=== PATIENT | female | born 1940 | race Caucasian/White ===

== ENCOUNTER → 2017-06-03 | Outpatient (CLI) | payer OTHER ==
[~2017-06-03] MED LIST: LEVO88TA PO; MILK1CAP; MULTTAB58 PO; NXM/40 PO; TAMO20TA47 PO; TRAM-453 PO; garlic; tumeric
--- NOTE | 2017-06-03 16:39 | DIAGNOSTIC IMAGING REPORT ---
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 No acute infiltrate. Mid and upper lungs are clear. Diaphragms smooth. IMPRESSION: Chronic basilar change. No acute process. The above report was generated using voice recognition software. It may contain grammatical, syntax or spelling errors. Electronically signed by: Marino Foley M.D. 06/03/2017 4:37 PM Dictated Date/Time: 06/03/2017 4:36 PM
== END | disposition home or self-care (01) ==
LOC: C.RAD1850 16:27
PROVIDERS: ATTEND Internal Medicine Pulmonary Disease
DX: J45.991 Cough variant asthma (principal)

== ENCOUNTER 2023-03-20 18:15 | Observation (INO) ==
[2023-03-20] MEDS ORDERED: SODIUM CHLORIDE 0.9% 1000ML 1,000 ML IV STA (18:22)
--- NOTE | 2023-03-20 18:22 | ED Triage Note ---
Date of Service March 20, 2023 History of Present Illness This patient was briefly evaluated while in triage. An abbreviated physical exam was performed. This patient is a 82-year-old Female who presents to the ED for evaluation of a fever. Patient reports having a complicated ERCP yesterday by [facility] (Dr. Bernardo Gruber), and has not felt well since. The patient did check her temperature, and noticed that her postoperative discharge instructions recommended follow-up with any concerning symptoms. Patient does report upper abdominal pain, denying any chest pain or shortness of breath. The patient rates her discomfort a 10 out of 10 at its worst. The patient reports a prior history of multiple surgeries on her pancreas. 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 Physical Exam CONSTITUTIONAL: Healthy and well nourished. Patient does not appear toxic or in significant distress. HEENT: No scleral icterus or conjunctival injection. RESPIRATORY: Clear to auscultation bilaterally with no wheezing, crackles, rhonchi or stridor. CARDIOVASCULAR: Regular rate and rhythm with no murmurs, rubs or gallops. GASTROINTESTINAL: Bowel sounds present in all quadrants. Patient has mild epigastric and right upper quadrant tenderness to palpation. No rigidity, guarding or rebound. MUSCULOSKELETAL: Full range of motion of all joints without discomfort. INTEGUMENTARY: No rash or other significant dermatologic conditions noted. HEMATOLOGIC: No ecchymosis or petechiae. PSYCHIATRIC: Positive affect. NEUROLOGIC: No focal neurologic deficits noted. Initial orders for labs and / or imaging were placed and patient was placed in the waiting area until a bed is available. Please see further documentation for the full ED course.
[2023-03-20 19:15] LABS: Basophils # (auto) 0.02 K/uL (0-0.2); Basophils % (auto) 0.3 %; Eosinophils # (auto) 0.08 K/uL (0-0.50); Eosinophils % (auto) 1.1 %; Hematocrit (blood only) 32.7 % (37.0-47.0); Hemoglobin 10.4 g/dl (12.0-16.0); Immature Granulocytes # (auto) 0.02 K/uL (0.01-0.20); Immature Granulocytes % (auto) 0.3 %; Lymphocytes # (auto) 1.32 K/uL (1.2-3.4); Lymphocytes % (auto) 17.7 %; Mean Corpuscular Hemoglobin 28.9 pg (25.0-34.0); Mean Corpuscular Hgb Conc 31.8 g/dL (32.0-36.0); Mean Corpuscular Volume 90.8 fL (80.0-100.0); Mean Platelet Volume 9.5 fL (9.4-12.4); Monocytes # (auto) 0.51 K/uL (0.11-0.59); Monocytes % (auto) 6.8 %; Neutrophils # (auto) 5.51 K/uL (1.40-6.50); Neutrophils % (auto) 73.8 %; Platelet Count 212 K/uL (130-400); RDW Coefficient of Variation 13.2 % (11.5-14.5); RDW Standard Deviation 43.6 fL (36.4-46.3); White Blood Count 7.46 K/ul (4.8-10.8)
[2023-03-20 19:24] LABS: Albumin Globulin Ratio 1.5 (0.9-2); Albumin Level 3.9 gm/dl (3.4-5.0); BUN Creatinine Ratio 16.8 (10-20); Bilirubin,Total 0.6 mg/dl (0.2-1.0); Calcium 8.5 mg/dl (8.6-10.3); Creatinine Clr Calc Pharmacy 35.6 ml/min; Est GFR (African American) 55.6 ml/min; Globulin 2.6 gm/dl (2.5-4.0); Potassium 4.4 mmol/L (3.5-5.1); Total Protein 6.5 gm/dl (6.0-8.3)
[2023-03-20 19:30] LABS: Troponin I High Sensitivity 4.4 pg/ml (0-14)
[2023-03-20 19:46] LABS: Appearance Urine Clear (Clear); Bacteria Urine Automated Negative (Negative); Bilirubin Urine Negative (Negative); Blood Urine Trace (Negative); Cast Urine Automated 0 /lpf (0-5); Color Urine Yellow; Epithelial Cell Urine Auto 0-5 /lpf (0-5); Glucose Urine UA Negative (Negative); Ketones Urine Negative (Negative); Leukocyte Esterase Urine Negative (Negative); Nitrite Urine Negative (Negative); Protein Urine Negative (Negative); RBC Urine Automated 0-4 /hpf (0-4); Urobilinogen Urine Negative (Negative); pH Urine 6.5 (4.5-7.5)
--- NOTE | 2023-03-20 19:51 | Emergency Department Note ---
Impression & Plan Acute upper abdominal pain, Acute pancreatitis, S/P ERCP, Anemia ED Provider Note NAME: LESTER CHOUDHARY AGE: 82 SEX: F : 1940 ARRIVES VIA: Walk-In INFORMANT: [Patient] ED PROVIDER(S): [Jose Molina MD] CHIEF COMPLAINT: Fever, abdominal pain HISTORY OF PRESENT ILLNESS: The patient is an 82-year-old female who had an ERCP done yesterday by Dr. Vela. She did have a stent placed to help drain the pancreas. She has a history of pancreatitis. The patient states that she feels worse since the ERCP. She has had increasing colicky pain in the right upper quadrant and ep igastrium. She has had no appetite and some nausea. Today, her temperature was 100.3. She presents for evaluation. There has been no cough or congestion or shortness of breath. No urinary complaints, no diarrhea. PMHx/PSHx: See Below SOCIAL HISTORY: See Below. PHYSICAL EXAM: GENERAL: Patient is in no acute distress. HEENT: No acute trauma, normocephalic atraumatic, mucous membranes moist, no nasal congestion. NECK: No stridor, no adenopathy, no meningismus, trachea is midline. LUNGS: Clear to auscultation bilaterally, no wheeze, no rhonchi, breath sounds equal. HEART: Without murmurs gallops or rubs, regular rate and rhythm. ABDOMEN: Diffuse abdominal tenderness but primarily tender in the right upper quadrant and epigastrium, no peritonitis. EXTREMITIES: No cyanosis or edema, full range of motion of all the joints without pain or difficulty, no signs for acute trauma. NEUROLOGIC: Oriented x 3, no acute motor or sensory deficits, no focal weakness. SKIN: No rash, no jaundice, no diaphoresis. DIFFERENTIAL DIAGNOSIS: Pancreatitis, stent obstruction, biliary colic, bowel rupture, bile leak, hemorrhage, among others. EMERGENCY DEPARTMENT COURSE/PROCEDURES: Prior/Outside records reviewed: None. ECG per my interpretation: Indication was abdominal pain. The ECG shows a normal sinus rhythm with a rate of 87. There is an old septal infarct. There is no ST elevation, no PVCs. The QTc is 382. Continuous Cardiac Monitoring per my interpretation: An order was placed for continuous cardiac monitoring. The monitor shows a rate of 90 with normal sinus rhythm. MEDICAL DECISION MAKING: There is no leukocytosis. A mild anemia was seen. There was a normal platelet count. No renal failure or significant electrolyte abnormality. Lactic acid level was not elevated making severe sepsis less likely. No concerning liver enzyme elevation. Lipase was slightly elevated consistent with early pancreatitis. Urinalysis did not show findings of infection. COVID test returned negative. Abdominal and pelvis CT showed a small wire within the small bowel, no bowel perforation or bowel obstruction. No intra-abdominal hemorrhage appreciated. Patient did have a stone in her common bile duct. A pancreatic duct stent was in place. Patient was tender in the upper abdomen. She had just underwent ERCP. Patient was given IV saline, 1 L. She did not want anything for pain. I spoke with GI, Dr. Selby. We discussed the case. Admission/observation was recommended given the recent procedure and the findings on CT imaging coupled with her laboratory testing. I spoke with the patient and case management, the on-call hospitalist was consulted. Early pancreatitis is possible, biliary/pancreatic duct obstruction is possible, foreign body is possible. DISPOSITION: Patient's presentation and findings warrant a hospital stay. Past Med/Surg History Medical History Pancreatitis Social History Smoking Status: Former smoker Feels Safe at Home: Yes Allergies Allergies Allergy/AdvReac Type Severity Reaction Status Date / Time nitrofurantoin Allergy Severe Anaphylaxis Verified 03/20/23 22:51 [From Macrobid] Home Meds Home Medications Medication Instructions Recorded Confirmed B-complex with vitamin C 1 tab PO DAILY 03/20/23 03/20/23 Lactobacillus acidophilus 1.5 mg 0 mmu cells PO DAILY 03/20/23 03/20/23 (250 million cell) capsule (Probiotic Acidophilus) Vitamin D2 Tab 2,000 unit PO DAILY 03/20/23 03/20/23 cetirizine 10 mg tablet 10 mg PO DAILY 03/20/23 03/20/23 ciprofloxacin HCl 500 mg tablet 500 mg PO BID 03/20/23 03/20/23 (Cipro) garlic 1,000 mg capsule 1,000 mg PO DAILY 03/20/23 03/20/23 ipratropium bromide 42 mcg (0.06 1 spray intranasal BID 03/20/23 03/20/23 %) nasal spray levalbuterol tartrate 45 2 puff inhalation Q6 PRN Shortness 03/20/23 03/20/23 mcg/actuation aerosol inhaler Of Breath Or Wheezing (Xopenex HFA) levothyroxine 88 mcg tablet 88 mcg PO DAILY 03/20/23 03/20/23 milk thistle 200 mg capsule 200 mg PO DAILY PRN .. 03/20/23 03/20/23 omeprazole 20 mg capsule,delayed 20 mg PO QAM 03/20/23 03/20/23 release turmeric root extract 500 mg tablet 500 mg PO QAM 03/20/23 03/20/23 Results & Data (ED) Vital Signs Vital Signs - 24 hr 03/20/23 18:17 03/20/23 19:24 03/20/23 19:39 Temperature 37.3 C Temperature Source Oral Pulse Rate 105 H 88 Pulse Rate [Apical] 90 Pulse Rate from SpO2 Sensor Pulse Rhythm [Apical] Regular Pulse Strength [Apical] Normal Respiratory Rate 18 19 Respiratory Effort / Characteristics Non-Labored Spontaneous Respiratory Depth Normal Respiratory Pattern Regular Blood Pressure 191/97 H Blood Pressure [Left Arm] 125/100 Blood Pressure Mean 128 Blood Pressure Mean [Left Arm] 108 Blood Pressure Position [Left Arm] Lying Pulse Oximetry 90 94 Oxygen Delivery Method Room Air Room Air Oxygen Flow Rate Sepsis Recent Fever Within 48 Hours Yes Sepsis New/Unexplained Change in Mental Status N/A Sepsis Action Taken by Nursing No Action Required 03/20/23 19:39 03/20/23 21:00 03/20/23 21:06 Temperature Temperature Source Pulse Rate 90 Pulse Rate [Apical] 80 Pulse Rate from SpO2 Sensor Pulse Rhythm [Apical] Regular Pulse Strength [Apical] Normal Respiratory Rate 19 17 Respiratory Effort / Characteristics Non-Labored Spontaneous Respiratory Depth Normal Respiratory Pattern Regular Blood Pressure Blood Pressure [Left Arm] 138/76 Blood Pressure Mean Blood Pressure Mean [Left Arm] 96 Blood Pressure Position [Left Arm] Lying Pulse Oximetry 94 88 L 98 Oxygen Delivery Method Room Air Room Air Nasal Cannula Oxygen Flow Rate 2 Sepsis Recent Fever Within 48 Hours Sepsis New/Unexplained Change in Mental Status Sepsis Action Taken by Nursing 03/20/23 22:00 03/20/23 23:00 Temperature Temperature Source Pulse Rate 87 Pulse Rate [Apical] 78 Pulse Rate from SpO2 Sensor 88 Pulse Rhythm [Apical] Pulse Strength [Apical] Respiratory Rate 27 H 17 Respiratory Effort / Characteristics Non-Labored Spontaneous Respiratory Depth Normal Respiratory Pattern Blood Pressure 147/93 H Blood Pressure [Left Arm] 122/65 Blood Pressure Mean 111 Blood Pressure Mean [Left Arm] 84 Blood Pressure Position [Left Arm] Lying Pulse Oximetry 99 99 Oxygen Delivery Method Nasal Cannula Room Air Oxygen Flow Rate 2 Sepsis Recent Fever Within 48 Hours Sepsis New/Unexplained Change in Mental Status Sepsis Action Taken by Residential Medications Current Medication List: was personally reviewed by me Laboratory Data Attestation: I reviewed the patient's lab results. 03/20/23 18:50 03/20/23 18:50 Lab Results 03/20/23 03/20/23 03/20/23 Range/Units 18:50 18:50 18:50 WBC 7.46 (4.8-10.8) K/ul RBC 3.60 L (4.20-5.40) M/uL Hgb 10.4 L (12.0-16.0) g/dl Hct 32.7 L (37.0-47.0) % MCV 90.8 (80.0-100.0) fL MCH 28.9 (25.0-34.0) pg MCHC 31.8 L (32.0-36.0) g/dL RDW Std Deviation 43.6 (36.4-46.3) fL RDW Coeff of [place] 13.2 (11.5-14.5) % Plt Count 212 (130-400) K/uL MPV 9.5 (9.4-12.4) fL Immature Gran % (Auto) 0.3 % Neut % (Auto) 73.8 % Lymph % (Auto) 17.7 % [place] % (Auto) 6.8 % Eos % (Auto) 1.1 % Baso % (Auto) 0.3 % Neut # (Auto) 5.51 (1.40-6.50) K/uL Lymph # (Auto) 1.32 (1.2-3.4) K/uL [place] # (Auto) 0.51 (0.11-0.59) K/uL Eos # (Auto) 0.08 (0-0.50) K/uL Baso # (Auto) 0.02 (0-0.2) K/uL Immature Gran # (Auto) 0.02 (0.01-0.20) K/uL Sodium 138 (136-145) mmol/L Potassium 4.4 (3.5-5.1) mmol/L Chloride 104 (98-107) mmol/L Carbon Dioxide 29 (21-32) mmol/L Anion Gap 5 (3-11) BUN 18 (6-23) mg/dl Creatinine 1.07 (0.6-1.2) mg/dl Est Cr Clr Drug Dosing 35.6 ml/min Est GFR ( Amer) 55.6 ml/min Est GFR (Non-Af Amer) 48.0 ml/min BUN/Creatinine Ratio 16.8 (10-20) Glucose 100 H (70-99(Fasting)) mg/dl Lactate 0.7 (0.4-2.0) mmol/L Calcium 8.5 L (8.6-10.3) mg/dl Magnesium 1.9 (1.7-2.4) mg/dl Total Bilirubin 0.6 (0.2-1.0) mg/dl AST 18 (13-39) U/L ALT 18 (7-52) U/L Alkaline Phosphatase 70 (34-104) U/L Troponin I High Sens 4.4 (0-14) pg/ml Total Protein 6.5 (6.0-8.3) gm/dl Albumin 3.9 (3.4-5.0) gm/dl Globulin 2.6 (2.5-4.0) gm/dl Albumin/Globulin Ratio 1.5 (0.9-2) Lipase 96 H (11-82) U/L Procalcitonin (0-0.5) ng/ml Urine Color Urine Appearance (Clear) Urine pH (4.5-7.5) Ur Specific [place] (1.000-1.030) Urine Protein (Negative) Urine Glucose (UA) (Negative) Urine Ketones (Negative) Urine Blood (Negative) Urine Nitrite (Negative) Urine Bilirubin (Negative) Urine Urobilinogen (Negative) Ur Leukocyte Esterase (Negative) Urine WBC (Auto) (0-5) /hpf Urine RBC (Auto) (0-4) /hpf U Hyaline Cast (Auto) (0-5) /lpf U Epithel Cells (Auto) (0-5) /lpf Urine Bacteria (Auto) (Negative) SARS-CoV-2, RNA, NAAT (NEGATIVE) 03/20/23 03/20/23 03/20/23 Range/Units 18:50 18:55 19:23 WBC (4.8-10.8) K/ul RBC (4.20-5.40) M/uL Hgb (12.0-16.0) g/dl Hct (37.0-47.0) % MCV (80.0-100.0) fL MCH (25.0-34.0) pg MCHC (32.0-36.0) g/dL RDW Std Deviation (36.4-46.3) fL RDW Coeff of [place] (11.5-14.5) % Plt Count (130-400) K/uL MPV (9.4-12.4) fL Immature Gran % (Auto) % Neut % (Auto) % Lymph % (Auto) % [place] % (Auto) % Eos % (Auto) % Baso % (Auto) % Neut # (Auto) (1.40-6.50) K/uL Lymph # (Auto) (1.2-3.4) K/uL [place] # (Auto) (0.11-0.59) K/uL Eos # (Auto) (0-0.50) K/uL Baso # (Auto) (0-0.2) K/uL Immature Gran # (Auto) (0.01-0.20) K/uL Sodium (136-145) mmol/L Potassium (3.5-5.1) mmol/L Chloride (98-107) mmol/L Carbon Dioxide (21-32) mmol/L Anion Gap (3-11) BUN (6-23) mg/dl Creatinine (0.6-1.2) mg/dl Est Cr Clr Drug Dosing ml/min Est GFR ( Amer) ml/min Est GFR (Non-Af Amer) ml/min BUN/Creatinine Ratio (10-20) Glucose (70-99(Fasting)) mg/dl Lactate (0.4-2.0) mmol/L Calcium (8.6-10.3) mg/dl Magnesium (1.7-2.4) mg/dl Total Bilirubin (0.2-1.0) mg/dl AST (13-39) U/L ALT (7-52) U/L Alkaline Phosphatase (34-104) U/L Troponin I High Sens (0-14) pg/ml Total Protein (6.0-8.3) gm/dl Albumin (3.4-5.0) gm/dl Globulin (2.5-4.0) gm/dl Albumin/Globulin Ratio (0.9-2) Lipase (11-82) U/L Procalcitonin 0.11 (0-0.5) ng/ml Urine Color Yellow Urine Appearance Clear (Clear) Urine pH 6.5 (4.5-7.5) Ur Specific [place] 1.010 (1.000-1.030) Urine Protein Negative (Negative) Urine Glucose (UA) Negative (Negative) Urine Ketones Negative (Negative) Urine Blood Trace H (Negative) Urine Nitrite Negative (Negative) Urine Bilirubin Negative (Negative) Urine Urobilinogen Negative (Negative) Ur Leukocyte Esterase Negative (Negative) Urine WBC (Auto) 1-5 (0-5) /hpf Urine RBC (Auto) 0-4 (0-4) /hpf U Hyaline Cast (Auto) 0 (0-5) /lpf U Epithel Cells (Auto) 0-5 (0-5) /lpf Urine Bacteria (Auto) Negative (Negative) SARS-CoV-2, RNA, NAAT NEGATIVE (NEGATIVE) Administered Medications Lactated Ringer's (Lr) 1,000 mls @ 100 mls/hr IV .Q10H ONE Stop: 03/21/23 08:37 Last Admin: 03/20/23 23:36 Dose: 100 mls/hr Documented By: CAW Discontinued Medications Sodium Chloride (Nss 1000ml) 1,000 mls @ 999 mls/hr IV .Q1H1M STA Stop: 03/20/23 19:22 Last Infusion: 03/20/23 20:52 Dose: 0 mls/hr Documented By: Admin: 03/20/23 19:30 Dose: 999 mls/hr Documented By: ALBERTO Ioversol (Optiray 320 100ml) 96 ml IV ONCE ONE Stop: 03/20/23 20:35 Last Admin: 03/20/23 20:34 Dose: 96 ml Documented By: JAEL Imaging Data Radiologist's Impression: Abdomen/Pelvis CT 03/20/23 18:22 Exam(s): CT ABDOMEN + PELVIS With Contrast IV Amt: 96 ml optiray 320 EXAM: CT Abdomen and Pelvis With Intravenous Contrast CLINICAL HISTORY: Reason for exam: Upper abd pain s/p ERCP. TECHNIQUE: Axial computed tomography images of the abdomen and pelvis with intravenous contrast. CTDI is 11.04 mGy and DLP is 524.16 mGy-cm. Automated exposure control was utilized for the study. A dose lowering technique was utilized adhering to the principles of ALARA. CONTRAST: Patient received 96 ml optiray 320 of IV contrast COMPARISON: No relevant prior studies available. FINDINGS: Lung bases: Unremarkable. No mass. No consolidation. ABDOMEN: Liver: Unremarkable. No mass. Gallbladder and bile ducts: Dilated common bile duct, which contains a gallstone measuring 6 mm. Cholecystectomy. Pneumobilia. Pancreas: Main pancreatic duct stent. Spleen: Unremarkable. No splenomegaly. Adrenals: Unremarkable. No mass. Kidneys and ureters: Unremarkable. No hydronephrosis or delayed nephrogram. Stomach and bowel: Metallic wire in the small bowel measuring approximately 7.3 cm. No obstruction. No mucosal thickening. PELVIS: Appendix: No findings to suggest acute appendicitis. Bladder: Unremarkable. No mass. Reproductive: Unremarkable as visualized. ABDOMEN and PELVIS: Intraperitoneal space: Unremarkable. No free air. No significant fluid collection. Bones/joints: Degenerative changes of the spine. No acute fracture. No dislocation. Soft tissues: Unremarkable. Vasculature: Atherosclerotic changes of the aorta. No abdominal aortic aneurysm. Lymph nodes: Unremarkable. No enlarged lymph nodes. IMPRESSION: 1. Main pancreatic duct stent. 2. Metallic wire in the small bowel measuring approximately 7.3 cm. Note, this has a similar appearance as the pancreatic duct stent, but a shorter. 3. Dilated common bile duct, which contains a gallstone measuring 6 mm. Cholecystectomy. Pneumobilia. Electronically signed by: Clayton Leigh MD 03/20/23 21:07 PM Discharge Plan Visit Data Chief Complaint: Fever Stated Complaint: ABDOMINAL PAIN,FEVER ED Provider: Jose Molina Discharge Problem: Acute upper abdominal pain, Acute pancreatitis, S/P ERCP, Anemia Patient Disposition: Admitted As Inpatient Condition: Good Forms Stand Alone Forms: [facility] [place] [employer] Prescriptions Prescriptions: No Action cetirizine 10 mg Tablet 10 mg PO DAILY milk thistle 200 mg Capsule 200 mg PO DAILY PRN (Reason: ..) Rx Instructions: give with meal/snack ciprofloxacin HCl [Cipro] 500 mg Tablet 500 mg PO BID Rx Instructions: ordered 03/20/23 garlic 1,000 mg Capsule 1,000 mg PO DAILY levothyroxine 88 mcg tablet 88 mcg PO DAILY omeprazole 20 mg capsule,delayed release(DR/EC) 20 mg PO QAM ipratropium bromide 42 mcg (0.06 %) [place],Non-Aerosol 1 spray INTRANASAL BID Rx Instructions: administer into each nostril B-complex with vitamin C [Super B Complex + C] Tablet 1 tab PO DAILY Probiotic Acidophilus 1.5 mg (250 million cell) Capsule 0 mmu cells PO DAILY turmeric root extract 500 mg Tablet 500 mg PO QAM Vitamin D2 Tab 2,000 unit PO DAILY levalbuterol tartrate [Xopenex HFA] 45 mcg/actuation HFA aerosol inhaler 2 puff INHALATION Q6 PRN (Reason: Shortness Of Breath Or Wheezing) Referrals Referrals: Amanda Curry MD [Primary Care Provider] -
[2023-03-20] MEDS ORDERED: OPTIRAY 320 100ml IV ONE (20:34)
--- NOTE | 2023-03-20 21:08 | CT Scan Report ---
Exam(s): CT ABDOMEN + PELVIS With Contrast IV Amt: 96 ml optiray 320 EXAM: CT Abdomen and Pelvis With Intravenous Contrast CLINICAL HISTORY: Reason for exam: Upper abd pain s/p ERCP. TECHNIQUE: Axial computed tomography images of the abdomen and pelvis with intravenous contrast. CTDI is 11.04 mGy and DLP is 524.16 mGy-cm. Automated exposure control was utilized for the study. A dose lowering technique was utilized adhering to the principles of ALARA. CONTRAST: Patient received 96 ml optiray 320 of IV contrast COMPARISON: No relevant prior studies available. FINDINGS: Lung bases: Unremarkable. No mass. No consolidation. ABDOMEN: Liver: Unremarkable. No mass. Gallbladder and bile ducts: Dilated common bile duct, which contains a gallstone measuring 6 mm. Cholecystectomy. Pneumobilia. Pancreas: Main pancreatic duct stent. Spleen: Unremarkable. No splenomegaly. Adrenals: Unremarkable. No mass. Kidneys and ureters: Unremarkable. No hydronephrosis or delayed nephrogram. Stomach and bowel: Metallic wire in the small bowel measuring approximately 7.3 cm. No obstruction. No mucosal thickening. PELVIS: Appendix: No findings to suggest acute appendicitis. Bladder: Unremarkable. No mass. Reproductive: Unremarkable as visualized. ABDOMEN and PELVIS: Intraperitoneal space: Unremarkable. No free air. No significant fluid collection. Bones/joints: Degenerative changes of the spine. No acute fracture. No dislocation. Soft tissues: Unremarkable. Vasculature: Atherosclerotic changes of the aorta. No abdominal aortic aneurysm. Lymph nodes: Unremarkable. No enlarged lymph nodes. IMPRESSION: 1. Main pancreatic duct stent. 2. Metallic wire in the small bowel measuring approximately 7.3 cm. Note, this has a similar appearance as the pancreatic duct stent, but a shorter. 3. Dilated common bile duct, which contains a gallstone measuring 6 mm. Cholecystectomy. Pneumobilia. Electronically signed by: Clayton Leigh MD 03/20/23 21:07 PM
[2023-03-20] MEDS ORDERED: LACTATED RINGER'S 1,000 ML IV ONE (22:38)
--- NOTE | 2023-03-20 23:30 | History & Physical Report ---
Date of Service March 20, 2023 Assessment & Plan (1) Abdominal pain: Plan: Possible post ERCP pancreatitis hx chronic pancreatitis/history choledochal cyst status post surgery Patient nontoxic. Transient hypoxemia noted at the ER Possibly from COPD. patient denies unusual SOB Right breast cancer status post surgery/radiation/tamoxifen Rx, currently in remission hypothyroidism, euthyroid as of recent outpatient TSH Acute on chronic anemia, Hemoglobin lower than baseline, patient denies overt GI bleed mood disorder, at baseline past tobacco abuse OBS GMF Bowel rest IVF GI consult Re: Post ERCP abdominal pain Supplemental O2 anemia work-up, patient hesitant to receive transfusion if recommended DVT prophylaxis. SCDs Re: Recent ERCP Recommended Lovenox 30 mg subcutaneous daily if no contraindication to anticoagulation pending GI evaluation Full code Text document was generated using [employer] voice recognition software. It may contain grammatical or spelling errors. Kindly contact undersigned for clarification of any documentation item in question. History of Present Illness Chief Complaint: Abdominal pain Primary Care Provider: Amanda Curry MD History obtained from patient and records. Medical history significant for chronic pancreatitis/history choledochal cyst st atus post surgery, COPD, right breast cancer status post surgery/radiation/tamoxifen Rx, hypothyroidism, chronic anemia (baseline hemoglobin 11), mood disorder, past tobacco abuse. Patient underwent outpatient ERCP at [facility] 2 days ago for CBD stone and for therapy of chronic pancreatitis. INR prophylaxis. Durotomy performed with confirmation of pancreas divisum. Choledocholithiasis found with complete removal via biliary sphincterotomy and balloon extraction with subsequent CBD stent placement. Ciprofloxacin course prescribed for 3 days. Abdominal x-ray recommended after 3 weeks to assure spontaneous migration of stents as per endoscopy report. Worsening epigastric pain at home following procedure as per patient. Fever 103 with some nausea. Patient denies chest pain, unusual SOB. Patient denies black/bloody stools. Patient compliant with ciprofloxacin Rx. Patient consulted ER for worsening symptoms. Medical History as above Surgical History : Vaginal sling repair, rectal prolapse repair, right breast lumpectomy, common bile duct removal for choledochal cyst, radical hysterectomy, appendectomy, cataract surgery, cholecystectomy Family History : Lymphoma, heart disease Personal/Social history : Past tobacco abuse, occasional EtOH intake, retired businesswoman Allergies Allergy/AdvReac Type Severity Reaction Status Date / Time nitrofurantoin Allergy Severe Anaphylaxis Verified 03/20/23 22:51 [From Macrobid] Home Medications Medication Instructions Recorded Confirmed Type B-complex with vitamin C 1 tab PO DAILY 03/20/23 03/20/23 History Lactobacillus acidophilus 1.5 mg 0 mmu cells PO DAILY 03/20/23 03/20/23 History (250 million cell) capsule (Probiotic Acidophilus) Vitamin D2 Tab 2,000 unit PO DAILY 03/20/23 03/20/23 History cetirizine 10 mg tablet 10 mg PO DAILY 03/20/23 03/20/23 History ciprofloxacin HCl 500 mg tablet 500 mg PO BID 03/20/23 03/20/23 History (Cipro) garlic 1,000 mg capsule 1,000 mg PO DAILY 03/20/23 03/20/23 History ipratropium bromide 42 mcg (0.06 1 spray intranasal BID 03/20/23 03/20/23 History %) nasal spray levalbuterol tartrate 45 2 puff inhalation Q6 PRN Shortness 03/20/23 03/20/23 History mcg/actuation aerosol inhaler Of Breath Or Wheezing (Xopenex HFA) levothyroxine 88 mcg tablet 88 mcg PO DAILY 03/20/23 03/20/23 History milk thistle 200 mg capsule 200 mg PO DAILY PRN .. 03/20/23 03/20/23 History omeprazole 20 mg capsule,delayed 20 mg PO QAM 03/20/23 03/20/23 History release turmeric root extract 500 mg tablet 500 mg PO QAM 03/20/23 03/20/23 History Past Med/Surg History Medical History Pancreatitis Social History Smoking Status: Never smoker Second Hand Exposure: No; Do You Dip or Chew Tobacco: No; Tobacco Cessation Education Requested by Patient: No Hx Alcohol Use: No Hx Substance Use: No Preferred Language: Telugu Communication Ability: Effective Airport Representative Required: No Beliefs That Will Affect Care: None Current Living Situation: Alone Feels Safe at Home: Yes Safety Concerns: Feels Safe At This Time Assistive Devices: Glasses and Hearing Aid - Left Review of Systems Review of Systems: As per HPI, all other systems reviewed and negative Physical Exam Physical Exam: GENERAL: Comfortable, slightly hard of hearing, pleasant, no respiratory distress SKIN: Pallor, warm HEENT: Pale palpebral conjunctivae, no ptosis, dry buccal mucosa, nasal cannula in place NECK : Supple, no tenderness CHEST : decreased breath sounds, no tenderness HEART : RRR, no obvious murmurs ABDOMEN: Some distention, epigastric tenderness EXTREMITIES : No LE swelling/tenderness, no other conspicuous deformities noted NEUROLOGIC : Coherent, no facial asymmetry, slightly hard of hearing, no other gross focality Results & Data Results & Data Vital Signs (Past 12 Hours) Vital Signs Temp Pulse Pulse Resp BP BP Pulse Ox 03/20/23 23:00 78 17 122/65 99 03/20/23 22:00 87 27 H 147/93 H 99 03/20/23 21:06 98 03/20/23 21:00 80 17 138/76 88 L 03/20/23 19:39 90 19 94 03/20/23 19:39 90 19 125/100 94 03/20/23 19:24 88 03/20/23 18:17 37.3 C 105 H 18 191/97 H 90 O2 Del Method O2 Flow Rate 03/20/23 23:00 Room Air 03/20/23 22:00 Nasal Cannula 2 03/20/23 21:06 Nasal Cannula 2 03/20/23 21:00 Room Air 03/20/23 19:39 Room Air 03/20/23 19:39 Room Air 03/20/23 19:24 03/20/23 18:17 Room Air Laboratory Results Laboratory Results WBC 7.46 K/ul (4.8-10.8) 03/20/23 18:50 RBC 3.60 M/uL (4.20-5.40) L 03/20/23 18:50 Hgb 10.4 g/dl (12.0-16.0) L 03/20/23 18:50 Hct 32.7 % (37.0-47.0) L 03/20/23 18:50 MCV 90.8 fL (80.0-100.0) 03/20/23 18:50 MCH 28.9 pg (25.0-34.0) 03/20/23 18:50 MCHC 31.8 g/dL (32.0-36.0) L 03/20/23 18:50 RDW Std Deviation 43.6 fL (36.4-46.3) 03/20/23 18:50 RDW Coeff of Tyree 13.2 % (11.5-14.5) 03/20/23 18:50 Plt Count 212 K/uL (130-400) 03/20/23 18:50 MPV 9.5 fL (9.4-12.4) 03/20/23 18:50 Immature Gran % (Auto) 0.3 % 03/20/23 18:50 Neut % (Auto) 73.8 % 03/20/23 18:50 Lymph % (Auto) 17.7 % 03/20/23 18:50 Clayton % (Auto) 6.8 % 03/20/23 18:50 Eos % (Auto) 1.1 % 03/20/23 18:50 Baso % (Auto) 0.3 % 03/20/23 18:50 Neut # (Auto) 5.51 K/uL (1.40-6.50) 03/20/23 18:50 Lymph # (Auto) 1.32 K/uL (1.2-3.4) 03/20/23 18:50 Clayton # (Auto) 0.51 K/uL (0.11-0.59) 03/20/23 18:50 Eos # (Auto) 0.08 K/uL (0-0.50) 03/20/23 18:50 Baso # (Auto) 0.02 K/uL (0-0.2) 03/20/23 18:50 Immature Gran # (Auto) 0.02 K/uL (0.01-0.20) 03/20/23 18:50 Sodium 138 mmol/L (136-145) 03/20/23 18:50 Potassium 4.4 mmol/L (3.5-5.1) 03/20/23 18:50 Chloride 104 mmol/L (98-107) 03/20/23 18:50 Carbon Dioxide 29 mmol/L (21-32) 03/20/23 18:50 Anion Gap 5 (3-11) 03/20/23 18:50 BUN 18 mg/dl (6-23) 03/20/23 18:50 Creatinine 1.07 mg/dl (0.6-1.2) 03/20/23 18:50 Est Cr Clr Drug Dosing 35.6 ml/min 03/20/23 18:50 Est GFR ( Amer) 55.6 ml/min 03/20/23 18:50 Est GFR (Non-Af Amer) 48.0 ml/min 03/20/23 18:50 BUN/Creatinine Ratio 16.8 (10-20) 03/20/23 18:50 Glucose 100 mg/dl (70-99(Fasting)) H 03/20/23 18:50 Lactate 0.7 mmol/L (0.4-2.0) 03/20/23 18:50 Calcium 8.5 mg/dl (8.6-10.3) L 03/20/23 18:50 Total Bilirubin 0.6 mg/dl (0.2-1.0) 03/20/23 18:50 AST 18 U/L (13-39) 03/20/23 18:50 ALT 18 U/L (7-52) 03/20/23 18:50 Alkaline Phosphatase 70 U/L (34-104) 03/20/23 18:50 Troponin I High Sens 4.4 pg/ml (0-14) 03/20/23 18:50 Total Protein 6.5 gm/dl (6.0-8.3) 03/20/23 18:50 Albumin 3.9 gm/dl (3.4-5.0) 03/20/23 18:50 Globulin 2.6 gm/dl (2.5-4.0) 03/20/23 18:50 Albumin/Globulin Ratio 1.5 (0.9-2) 03/20/23 18:50 Lipase 96 U/L (11-82) H 03/20/23 18:50 Procalcitonin 0.11 ng/ml (0-0.5) 03/20/23 18:50 Urine Color Yellow 03/20/23 18:55 Urine Appearance Clear (Clear) 03/20/23 18:55 Urine pH 6.5 (4.5-7.5) 03/20/23 18:55 Ur Specific Taylor 1.010 (1.000-1.030) 03/20/23 18:55 Urine Protein Negative (Negative) 03/20/23 18:55 Urine Glucose (UA) Negative (Negative) 03/20/23 18:55 Urine Ketones Negative (Negative) 03/20/23 18:55 Urine Blood Trace (Negative) H 03/20/23 18:55 Urine Nitrite Negative (Negative) 03/20/23 18:55 Urine Bilirubin Negative (Negative) 03/20/23 18:55 Urine Urobilinogen Negative (Negative) 03/20/23 18:55 Ur Leukocyte Esterase Negative (Negative) 03/20/23 18:55 Urine WBC (Auto) 1-5 /hpf (0-5) 03/20/23 18:55 Urine RBC (Auto) 0-4 /hpf (0-4) 03/20/23 18:55 U Hyaline Cast (Auto) 0 /lpf (0-5) 03/20/23 18:55 U Epithel Cells (Auto) 0-5 /lpf (0-5) 03/20/23 18:55 Urine Bacteria (Auto) Negative (Negative) 03/20/23 18:55 SARS-CoV-2, RNA, NAAT NEGATIVE (NEGATIVE) 03/20/23 19:23 Impressions Abdomen/Pelvis CT 03/20/23 18:22 Exam(s): CT ABDOMEN + PELVIS With Contrast IV Amt: 96 ml optiray 320 EXAM: CT Abdomen and Pelvis With Intravenous Contrast CLINICAL HISTORY: Reason for exam: Upper abd pain s/p ERCP. TECHNIQUE: Axial computed tomography images of the abdomen and pelvis with intravenous contrast. CTDI is 11.04 mGy and DLP is 524.16 mGy-cm. Automated exposure control was utilized for the study. A dose lowering technique was utilized adhering to the principles of ALARA. CONTRAST: Patient received 96 ml optiray 320 of IV contrast COMPARISON: No relevant prior studies available. FINDINGS: Lung bases: Unremarkable. No mass. No consolidation. ABDOMEN: Liver: Unremarkable. No mass. Gallbladder and bile ducts: Dilated common bile duct, which contains a gallstone measuring 6 mm. Cholecystectomy. Pneumobilia. Pancreas: Main pancreatic duct stent. Spleen: Unremarkable. No splenomegaly. Adrenals: Unremarkable. No mass. Kidneys and ureters: Unremarkable. No hydronephrosis or delayed nephrogram. Stomach and bowel: Metallic wire in the small bowel measuring approximately 7.3 cm. No obstruction. No mucosal thickening. PELVIS: Appendix: No findings to suggest acute appendicitis. Bladder: Unremarkable. No mass. Reproductive: Unremarkable as visualized. ABDOMEN and PELVIS: Intraperitoneal space: Unremarkable. No free air. No significant fluid collection. Bones/joints: Degenerative changes of the spine. No acute fracture. No dislocation. Soft tissues: Unremarkable. Vasculature: Atherosclerotic changes of the aorta. No abdominal aortic aneurysm. Lymph nodes: Unremarkable. No enlarged lymph nodes. IMPRESSION: 1. Main pancreatic duct stent. 2. Metallic wire in the small bowel measuring approximately 7.3 cm. Note, this has a similar appearance as the pancreatic duct stent, but a shorter. 3. Dilated common bile duct, which contains a gallstone measuring 6 mm. Cholecystectomy. Pneumobilia. Electronically signed by: Clayton Leigh MD 03/20/23 21:07 PM Diagnostic Findings Chest x-ray as per my interpretation atelectasis EKG as per my interpretation : Rate 85, NSR, normal axis, no ischemia
[2023-03-20] MEDS ORDERED: traMADol HCL 50 MG TABLET PO PRN (23:33)
[2023-03-20] MEDS ORDERED: ACETAMINOPHEN 325 MG TAB PO PRN (23:33)
[2023-03-20] MEDS ORDERED: PROMETHAZINE HCL 6.25 MG in SODIUM CHLORIDE 0.9% 50 ML IV PRN (23:33)
[2023-03-21 00:40] LABS: Magnesium 1.9 mg/dl (1.7-2.4)
[2023-03-21] MEDS ORDERED: LEVOTHYROXINE SODIUM 88 MCG TABLET PO SCH (06:30)
[2023-03-21 07:43] LABS: Basophils # (auto) 0.03 K/uL (0-0.2); Basophils % (auto) 0.5 %; Eosinophils # (auto) 0.15 K/uL (0-0.50); Eosinophils % (auto) 2.5 %; Hematocrit (blood only) 28.7 % (37.0-47.0); Hemoglobin 9.3 g/dl (12.0-16.0); Immature Granulocytes # (auto) 0.03 K/uL (0.01-0.20); Immature Granulocytes % (auto) 0.5 %; Lymphocytes # (auto) 1.14 K/uL (1.2-3.4); Lymphocytes % (auto) 18.7 %; Mean Corpuscular Hemoglobin 29.2 pg (25.0-34.0); Mean Corpuscular Hgb Conc 32.4 g/dL (32.0-36.0); Mean Corpuscular Volume 90.3 fL (80.0-100.0); Mean Platelet Volume 9.7 fL (9.4-12.4); Monocytes # (auto) 0.53 K/uL (0.11-0.59); Monocytes % (auto) 8.7 %; Neutrophils # (auto) 4.22 K/uL (1.40-6.50); Neutrophils % (auto) 69.1 %; Platelet Count 197 K/uL (130-400); RDW Coefficient of Variation 13.1 % (11.5-14.5); RDW Standard Deviation 43.4 fL (36.4-46.3); Red Blood Count 3.18 M/uL (4.20-5.40); Reticulocyte % 1.3 % (0.5-2.0); Reticulocytes # 0.04 10^6/uL (0.02-0.10)
--- NOTE | 2023-03-21 07:57 | XRay Report ---
XR chest 1V portable HISTORY: Hypoxia. COMPARISON: Chest 03/06/2016. FINDINGS: There are low lung volumes. No pneumothorax. No pleural effusions. Mild chronic interstitia l thickening, unchanged. No new focal lung consolidations to suggest a pneumonia. No evidence for pul monary edema. The heart is top normal in size. There are surgical clips within the right axilla. Calc ifications within the aortic knob. IMPRESSION: No significant change compared to the prior study. No acute process. ACT 112: Negative or not required by law. Electronically signed by: Omar Wallace M.D. 03/21/2023 7:55 AM
[2023-03-21 08:11] LABS: Albumin Globulin Ratio 1.5 (0.9-2); Albumin Level 3.2 gm/dl (3.4-5.0); BUN Creatinine Ratio 14.3 (10-20); Bilirubin,Total 0.6 mg/dl (0.2-1.0); Calcium 8.4 mg/dl (8.6-10.3); Creatinine Clr Calc Pharmacy 41.2 ml/min; Est GFR (African American) 67.6 ml/min; Est GFR (Non-African American) 58.3 ml/min; Globulin 2.2 gm/dl (2.5-4.0); Potassium 4.4 mmol/L (3.5-5.1); Total Protein 5.4 gm/dl (6.0-8.3)
[2023-03-21 08:15] LABS: Vitamin B12 296 pg/ml (180-914)
[2023-03-21 08:31] LABS: Ferritin 51.5 ng/ml (8-388)
[2023-03-21] MEDS ORDERED: IPRATROPIUM BROMIDE NASAL SPRAY 0.06% 15ML SCH (09:00)
[2023-03-21] MEDS ORDERED: PANTOprazole 40 MG TAB PO SCH (09:00)
[2023-03-21] MEDS ORDERED: CIPROFLOXACIN 500 MG TAB PO SCH (09:00)
[2023-03-21] MEDS ORDERED: CETIRIZINE HCL 10 MG TABLET PO SCH (09:00)
[2023-03-21] MEDS ORDERED: LACTATED RINGER'S 1,000 ML IV SCH (09:00)
[2023-03-21] MEDS ORDERED: VITAMIN B COMPLEX TAB PO SCH (09:00)
--- NOTE | 2023-03-21 09:31 | Gastrointestinal Consultation ---
Date of Consultation March 21, 2023 Assessment & Plan (1) Abdominal pain: 82 year old female with history of breast CA, hypothyroidism, asthma, CKD, acute pancreatitis age 7 s/p ex-lap diagnosed with choledochocyst, which was excised s/p bilateral hepaticojejunostomies then covered with a Dolores-en-Y loop admitted for abd pain, s/p endoscopic procedure earlier this week. Notes upper abd cramping/bloating that was severe which prompted ED evaluation as she noted a low grade temp at home. On arrival afebrile, normal WBC , LFTs normal, lipase 96 (normal 82) w/o pancreas changes on imaging. CT reviewed and interpreted by her endoscopic who notes CBD and PD stent in place as expected and expects CBD stone to pass given stent and sphincterotomy. No serologic or imaging to suggests pancreatitis. May advance diet as tolerated Complete a 7 day course of cipro/flagyl given report of fevers prior to arrival Perform an abdominal x-ray in 3 weeks to assure spontaneous migration of the stents Can try Bentyl 10 mg TID for abd cramping Analgesia PRN No GI contraindication to discharge Thank you for allowing us to participate in the care of this patient. Please call with any acute changes, questions or concerns. Please see addendum below with additional recommendation from my supervising physician. Supervising Physician Co-Signing Physician Notes I have seen and examined the patient with ENRIQUETA Gordon whose note refl ects our findings and plan. Complicated biliary history. s/p recnet ERPC and stenting. Imaging reviewed. Nothing acute or requiring intervention. conservative mgt. 1 week of abx given reported low grade temp at home. Please call with questions. History of Present Illness Reason for Consultation: abd pain Requesting Physician: Shell Attending Physician: Luisito Goff MD History of Present Illness 82 year old female with history of breast CA, hypothyroidism, asthma, CKD, acute pancreatitis age 7 s/p ex-lap diagnosed with choledochocyst, which was excised s/p bilateral hepaticojejunostomiesthen covered with a Dolores-en-Y loop admitted for abd pain, s/p endoscopic procedure earlier this week. Notes upper abd cramping/bloating that was severe which prompted ED evaluation as she noted a low grade temp at home. On arrival, LFTs normal, lipase 96 (normal 82) ERCP 2022: - A minor papilla sphincterotomy was performed, pancreas divisum confirmed and one plastic pancreatic stent was placed into the dorsal pancreatic duct. - The remnant distal CBD could not be cannulated due to completely stenosed papilla with Hx of sphincterotomy in the past. - Biliary rendezvous performed using EUS. A precut sphincterotomy was performed and access was achieved. - Choledocholithiasis was found. Complete removal was accomplished by biliary sphincterotomy and balloon extraction. - One plastic biliary stent was placed into the common bile duct. EUS 2022: There was no sign of significant pathology in the ampulla. - There was dilation in the remnant portion of the lower third of the main bile duct which measured up to 15 mm. One stone was visualized endosonographically in it. - There was dilation in the intrahepatic bile ducts, diffusely with sludge was visualized endosonographically in the common hepatic duct above the anastomosis. - There was no evidence of significant pathology in the visualized portion of the liver. - There was no sign of significant pathology in the entire pancreas. - Pancreas divisum was visualized. - The pancreatic duct had a dilated endosonographic appearance in the pancreatic head. The pancreatic duct measured up to 6 mm in diameter. The minor papillary orifice was visualized endoscopically. - Endosonographic images of the left adrenal gland were unremarkable. - The celiac trunk was endosonographically normal. - No specimens collected. Small bowel enteroscopy 2022: Normal esophagus. - Normal stomach. - Normal examined duodenum. - Widely patent enteroenterostomy, characterized by healthy appearing mucosa was found in the jejunum. - No specimens collected. CTAP 2022: Main pancreatic duct stent.Metallic wire in the small bowel measuring approximately 7.3 cm. Note, this has a similar appearance as the pancreatic duct stent, but a shorter.Dilated common bile duct, which contains a gallstone measuring 6 mm. Cholecystectomy. Pneumobilia. Allergies Allergy/AdvReac Type Severity Reaction Status Date / Time nitrofurantoin Allergy Severe Anaphylaxis Verified 03/20/23 22:51 [From Macrobid] Home Medications Medication Instructions Recorded Confirmed Type B-complex with vitamin C 1 tab PO DAILY 03/20/23 03/20/23 History Lactobacillus acidophilus 1.5 mg 0 mmu cells PO DAILY 03/20/23 03/20/23 History (250 million cell) capsule (Probiotic Acidophilus) Vitamin D2 Tab 2,000 unit PO DAILY 03/20/23 03/20/23 History cetirizine 10 mg tablet 10 mg PO DAILY 03/20/23 03/20/23 History ciprofloxacin HCl 500 mg tablet 500 mg PO BID 03/20/23 03/20/23 History (Cipro) garlic 1,000 mg capsule 1,000 mg PO DAILY 03/20/23 03/20/23 History ipratropium bromide 42 mcg (0.06 1 spray intranasal BID 03/20/23 03/20/23 History %) nasal spray levalbuterol tartrate 45 2 puff inhalation Q6 PRN Shortness 03/20/23 03/20/23 History mcg/actuation aerosol inhaler Of Breath Or Wheezing (Xopenex HFA) levothyroxine 88 mcg tablet 88 mcg PO DAILY 03/20/23 03/20/23 History milk thistle 200 mg capsule 200 mg PO DAILY PRN .. 03/20/23 03/20/23 History omeprazole 20 mg capsule,delayed 20 mg PO QAM 03/20/23 03/20/23 History release turmeric root extract 500 mg tablet 500 mg PO QAM 03/20/23 03/20/23 History Patient History Medical History Pancreatitis Social History Smoking Status: Never smoker Second Hand Exposure: No; Do You Dip or Chew Tobacco: No; Tobacco Cessation Education Requested by Patient: No Hx Alcohol Use: No Hx Substance Use: No Preferred Language: French Communication Ability: Effective Insulation Inspector Required: No Beliefs That Will Affect Care: None Current Living Situation: Alone Feels Safe at Home: Yes Safety Concerns: Feels Safe At This Time Assistive Devices: None Review of Systems Review of Systems: All systems reviewed & are unremarkable except as noted in HPI & below Physical Exam Constitutional: WD/WN, vitals as above Respiratory: normal respiratory effort, lungs clear to auscultation Cardiovascular: Rate/Rhythm: regular rate Gastrointestinal (Abdomen): Inspection/Auscultation: normal bowel sounds Percussion/Palpation: + abdomen tender and abdomen soft; no guarding and abdomen not rigid Skin: no rashes, warm and dry Results & Data Vital Signs (Past 12 Hours) Vital Signs Temp Pulse Pulse Resp BP BP Pulse Ox 03/21/23 07:19 37 C 72 16 101/62 98 03/21/23 01:38 03/21/23 01:38 36.8 C 84 16 122/69 95 03/21/23 01:12 36.8 C 90 18 123/97 95 03/20/23 23:00 78 17 122/65 99 03/20/23 22:00 87 27 H 147/93 H 99 O2 Del Method O2 Flow Rate 03/21/23 07:19 Nasal Cannula 2 03/21/23 01:38 Nasal Cannula 2 03/21/23 01:38 Nasal Cannula 2 03/21/23 01:12 Room Air 03/20/23 23:00 Room Air 03/20/23 22:00 Nasal Cannula 2 Laboratory Results 03/21/23 03/21/23 03/21/23 Range/Units 06:46 06:46 06:46 WBC 6.10 (4.8-10.8) K/ul RBC 3.18 L (4.20-5.40) M/uL Hgb 9.3 L (12.0-16.0) g/dl Hct 28.7 L (37.0-47.0) % MCV 90.3 (80.0-100.0) fL MCH 29.2 (25.0-34.0) pg MCHC 32.4 (32.0-36.0) g/dL RDW Std Deviation 43.4 (36.4-46.3) fL RDW Coeff of Tyree 13.1 (11.5-14.5) % Plt Count 197 (130-400) K/uL MPV 9.7 (9.4-12.4) fL Immature Gran % (Auto) 0.5 % Neut % (Auto) 69.1 % Lymph % (Auto) 18.7 % Evangeline % (Auto) 8.7 % Eos % (Auto) 2.5 % Baso % (Auto) 0.5 % Reticulocyte % (Auto) 1.3 (0.5-2.0) % Neut # (Auto) 4.22 (1.40-6.50) K/uL Lymph # (Auto) 1.14 L (1.2-3.4) K/uL Evangeline # (Auto) 0.53 (0.11-0.59) K/uL Eos # (Auto) 0.15 (0-0.50) K/uL Baso # (Auto) 0.03 (0-0.2) K/uL Reticulocyte # 0.04 (0.02-0.10) 10^6/uL Immature Gran # (Auto) 0.03 (0.01-0.20) K/uL Sodium 139 (136-145) mmol/L Potassium 4.4 (3.5-5.1) mmol/L Chloride 104 (98-107) mmol/L Carbon Dioxide 31 (21-32) mmol/L Anion Gap 4 (3-11) BUN 13 (6-23) mg/dl Creatinine 0.91 (0.6-1.2) mg/dl Est Cr Clr Drug Dosing 41.2 ml/min Est GFR ( Amer) 67.6 ml/min Est GFR (Non-Af Amer) 58.3 ml/min BUN/Creatinine Ratio 14.3 (10-20) Glucose 90 (70-99(Fasting)) mg/dl Lactate (0.4-2.0) mmol/L Calcium 8.4 L (8.6-10.3) mg/dl Magnesium (1.7-2.4) mg/dl Iron 32 L (35-150) mcg/dl Transferrin 152 L (200-360) mg/dl Ferritin 51.5 (8-388) ng/ml Total Bilirubin 0.6 (0.2-1.0) mg/dl AST 16 (13-39) U/L ALT 15 (7-52) U/L Alkaline Phosphatase 60 (34-104) U/L Troponin I High Sens (0-14) pg/ml Total Protein 5.4 L (6.0-8.3) gm/dl Albumin 3.2 L (3.4-5.0) gm/dl Globulin 2.2 L (2.5-4.0) gm/dl Albumin/Globulin Ratio 1.5 (0.9-2) Lipase (11-82) U/L Vitamin B12 296 (180-914) pg/ml Folate > 22.30 (>5.38) ng/ml Procalcitonin (0-0.5) ng/ml Urine Color Urine Appearance (Clear) Urine pH (4.5-7.5) Ur Specific Shafter (1.000-1.030) Urine Protein (Negative) Urine Glucose (UA) (Negative) Urine Ketones (Negative) Urine Blood (Negative) Urine Nitrite (Negative) Urine Bilirubin (Negative) Urine Urobilinogen (Negative) Ur Leukocyte Esterase (Negative) Urine WBC (Auto) (0-5) /hpf Urine RBC (Auto) (0-4) /hpf U Hyaline Cast (Auto) (0-5) /lpf U Epithel Cells (Auto) (0-5) /lpf Urine Bacteria (Auto) (Negative) SARS-CoV-2, RNA, NAAT (NEGATIVE) 03/20/23 03/20/23 03/20/23 Range/Units 19:23 18:55 18:50 WBC (4.8-10.8) K/ul RBC (4.20-5.40) M/uL Hgb (12.0-16.0) g/dl Hct (37.0-47.0) % MCV (80.0-100.0) fL MCH (25.0-34.0) pg MCHC (32.0-36.0) g/dL RDW Std Deviation (36.4-46.3) fL RDW Coeff of Tyree (11.5-14.5) % Plt Count (130-400) K/uL MPV (9.4-12.4) fL Immature Gran % (Auto) % Neut % (Auto) % Lymph % (Auto) % Evangeline % (Auto) % Eos % (Auto) % Baso % (Auto) % Reticulocyte % (Auto) (0.5-2.0) % Neut # (Auto) (1.40-6.50) K/uL Lymph # (Auto) (1.2-3.4) K/uL Evangeline # (Auto) (0.11-0.59) K/uL Eos # (Auto) (0-0.50) K/uL Baso # (Auto) (0-0.2) K/uL Reticulocyte # (0.02-0.10) 10^6/uL Immature Gran # (Auto) (0.01-0.20) K/uL Sodium (136-145) mmol/L Potassium (3.5-5.1) mmol/L Chloride (98-107) mmol/L Carbon Dioxide (21-32) mmol/L Anion Gap (3-11) BUN (6-23) mg/dl Creatinine (0.6-1.2) mg/dl Est Cr Clr Drug Dosing ml/min Est GFR ( Amer) ml/min Est GFR (Non-Af Amer) ml/min BUN/Creatinine Ratio (10-20) Glucose (70-99(Fasting)) mg/dl Lactate (0.4-2.0) mmol/L Calcium (8.6-10.3) mg/dl Magnesium (1.7-2.4) mg/dl Iron (35-150) mcg/dl Transferrin (200-360) mg/dl Ferritin (8-388) ng/ml Total Bilirubin (0.2-1.0) mg/dl AST (13-39) U/L ALT (7-52) U/L Alkaline Phosphatase (34-104) U/L Troponin I High Sens (0-14) pg/ml Total Protein (6.0-8.3) gm/dl Albumin (3.4-5.0) gm/dl Globulin (2.5-4.0) gm/dl Albumin/Globulin Ratio (0.9-2) Lipase (11-82) U/L Vitamin B12 (180-914) pg/ml Folate (>5.38) ng/ml Procalcitonin 0.11 (0-0.5) ng/ml Urine Color Yellow Urine Appearance Clear (Clear) Urine pH 6.5 (4.5-7.5) Ur Specific Shafter 1.010 (1.000-1.030) Urine Protein Negative (Negative) Urine Glucose (UA) Negative (Negative) Urine Ketones Negative (Negative) Urine Blood Trace H (Negative) Urine Nitrite Negative (Negative) Urine Bilirubin Negative (Negative) Urine Urobilinogen Negative (Negative) Ur Leukocyte Esterase Negative (Negative) Urine WBC (Auto) 1-5 (0-5) /hpf Urine RBC (Auto) 0-4 (0-4) /hpf U Hyaline Cast (Auto) 0 (0-5) /lpf U Epithel Cells (Auto) 0-5 (0-5) /lpf Urine Bacteria (Auto) Negative (Negative) SARS-CoV-2, RNA, NAAT NEGATIVE (NEGATIVE) 03/20/23 03/20/23 03/20/23 Range/Units 18:50 18:50 18:50 WBC 7.46 (4.8-10.8) K/ul RBC 3.60 L (4.20-5.40) M/uL Hgb 10.4 L (12.0-16.0) g/dl Hct 32.7 L (37.0-47.0) % MCV 90.8 (80.0-100.0) fL MCH 28.9 (25.0-34.0) pg MCHC 31.8 L (32.0-36.0) g/dL RDW Std Deviation 43.6 (36.4-46.3) fL RDW Coeff of Tyree 13.2 (11.5-14.5) % Plt Count 212 (130-400) K/uL MPV 9.5 (9.4-12.4) fL Immature Gran % (Auto) 0.3 % Neut % (Auto) 73.8 % Lymph % (Auto) 17.7 % Evangeline % (Auto) 6.8 % Eos % (Auto) 1.1 % Baso % (Auto) 0.3 % Reticulocyte % (Auto) (0.5-2.0) % Neut # (Auto) 5.51 (1.40-6.50) K/uL Lymph # (Auto) 1.32 (1.2-3.4) K/uL Evangeline # (Auto) 0.51 (0.11-0.59) K/uL Eos # (Auto) 0.08 (0-0.50) K/uL Baso # (Auto) 0.02 (0-0.2) K/uL Reticulocyte # (0.02-0.10) 10^6/uL Immature Gran # (Auto) 0.02 (0.01-0.20) K/uL Sodium 138 (136-145) mmol/L Potassium 4.4 (3.5-5.1) mmol/L Chloride 104 (98-107) mmol/L Carbon Dioxide 29 (21-32) mmol/L Anion Gap 5 (3-11) BUN 18 (6-23) mg/dl Creatinine 1.07 (0.6-1.2) mg/dl Est Cr Clr Drug Dosing 35.6 ml/min Est GFR ( Amer) 55.6 ml/min Est GFR (Non-Af Amer) 48.0 ml/min BUN/Creatinine Ratio 16.8 (10-20) Glucose 100 H (70-99(Fasting)) mg/dl Lactate 0.7 (0.4-2.0) mmol/L Calcium 8.5 L (8.6-10.3) mg/dl Magnesium 1.9 (1.7-2.4) mg/dl Iron (35-150) mcg/dl Transferrin (200-360) mg/dl Ferritin (8-388) ng/ml Total Bilirubin 0.6 (0.2-1.0) mg/dl AST 18 (13-39) U/L ALT 18 (7-52) U/L Alkaline Phosphatase 70 (34-104) U/L Troponin I High Sens 4.4 (0-14) pg/ml Total Protein 6.5 (6.0-8.3) gm/dl Albumin 3.9 (3.4-5.0) gm/dl Globulin 2.6 (2.5-4.0) gm/dl Albumin/Globulin Ratio 1.5 (0.9-2) Lipase 96 H (11-82) U/L Vitamin B12 (180-914) pg/ml Folate (>5.38) ng/ml Procalcitonin (0-0.5) ng/ml Urine Color Urine Appearance (Clear) Urine pH (4.5-7.5) Ur Specific Shafter (1.000-1.030) Urine Protein (Negative) Urine Glucose (UA) (Negative) Urine Ketones (Negative) Urine Blood (Negative) Urine Nitrite (Negative) Urine Bilirubin (Negative) Urine Urobilinogen (Negative) Ur Leukocyte Esterase (Negative) Urine WBC (Auto) (0-5) /hpf Urine RBC (Auto) (0-4) /hpf U Hyaline Cast (Auto) (0-5) /lpf U Epithel Cells (Auto) (0-5) /lpf Urine Bacteria (Auto) (Negative) SARS-CoV-2, RNA, NAAT (NEGATIVE)
--- NOTE | 2023-03-21 12:50 | Discharge Summary ---
Date of Service March 21, 2023 Admission HPI Per Admitting Provider History obtained from patient and records. Medical history significant for chronic pancreatitis/history choledochal cyst status post surgery, COPD, right breast cancer status post surgery/radiation/tamoxifen Rx, hypothyroidism, chronic anemia (baseline hemoglobin 11), mood disorder, past tobacco abuse. Patient underwent outpatient ERCP at [facility] 2 days ago for CBD stone and for therapy of chronic pancreatitis. INR prophylaxis. Durotomy performed with confirmation of pancreas divisum. Choledocholithiasis found with complete removal via biliary sphincterotomy and balloon extraction with subsequent CBD stent placement. Ciprofloxacin course prescribed for 3 days. Abdominal x-ray recommended after 3 weeks to assure spontaneous migration of stents as per endoscopy report. Worsening epigastric pain at home following procedure as per patient. Fever 103 with some nausea. Patient denies chest pain, unusual SOB. Patient denies black/bloody stools. Patient compliant with ciprofloxacin Rx. Patient consulted ER for worsening symptoms. Medical History as above Surgical History : Vaginal sling repair, rectal prolapse repair, right breast lumpectomy, common bile duct removal for choledochal cyst, radical hysterectomy, appendectomy, cataract surgery, cholecystectomy Family History : Lymphoma, heart disease Personal/Social history : Past tobacco abuse, occasional EtOH intake, retired businesswoman Admission Exam Per Admitting Provider GENERAL: Comfortable, slightly hard of hearing, pleasant, no respiratory distress SKIN: Pallor, warm HEENT: Pale palpebral conjunctivae, no ptosis, dry buccal mucosa, nasal cannula in place NECK : Supple, no tenderness CHEST : decreased breath sounds, no tenderness HEART : RRR, no obvious murmurs ABDOMEN: Some distention, epigastric tenderness EXTREMITIES : No LE swelling/tenderness, no other conspicuous deformities noted NEUROLOGIC : Coherent, no facial asymmetry, slightly hard of hearing, no other gross focality Principal Diagnosis Abdominal pain after ERCP Discharge Exam GENERAL: Comfortable, slightly hard of hearing, pleasant, no respiratory distress HEENT: NC/AT. EOMI. NECK : Supple, no tenderness CHEST : decreased breath sounds, no tenderness HEART : RRR, no obvious murmurs ABDOMEN: Some distention, mild epigastric tenderness (improved) EXTREMITIES : No LE swelling/tenderness, moves extremities NEUROLOGIC : awake and alert, no facial asymmetry, slightly hard of hearing, answers appropriately, moves extremities SKIN: warm, dry Discharge Data Allergies Allergy/AdvReac Type Severity Reaction Status Date / Time nitrofurantoin Allergy Severe Anaphylaxis Verified 03/20/23 22:51 [From Macrobid] Consultations 03/20/23 22:03 ED Decision to Admit Stat 03/20/23 23:33 Consult Gastroenterology Routine Ordered Studies 03/20/23 18:22 CT abd pelvis IV con only Stat FINDINGS: Lung bases: Unremarkable. No mass. No consolidation. ABDOMEN: Liver: Unremarkable. No mass. Gallbladder and bile ducts: Dilated common bile duct, which contains a gallstone measuring 6 mm. Cholecystectomy. Pneumobilia. Pancreas: Main pancreatic duct stent. Spleen: Unremarkable. No splenomegaly. Adrenals: Unremarkable. No mass. Kidneys and ureters: Unremarkable. No hydronephrosis or delayed nephrogram. Stomach and bowel: Metallic wire in the small bowel measuring approximately 7.3 cm. No obstruction. No mucosal thickening. PELVIS: Appendix: No findings to suggest acute appendicitis. Bladder: Unremarkable. No mass. Reproductive: Unremarkable as visualized. ABDOMEN and PELVIS: Intraperitoneal space: Unremarkable. No free air. No significant fluid collection. Bones/joints: Degenerative changes of the spine. No acute fracture. No dislocation. Soft tissues: Unremarkable. Vasculature: Atherosclerotic changes of the aorta. No abdominal aortic aneurysm. Lymph nodes: Unremarkable. No enlarged lymph nodes. IMPRESSION: 1. Main pancreatic duct stent. 2. Metallic wire in the small bowel measuring approximately 7.3 cm. Note, this has a similar appearance as the pancreatic duct stent, but a shorter. 3. Dilated common bile duct, which contains a gallstone measuring 6 mm. Cholecystectomy. Pneumobilia. Hospital Course (1) Abdominal pain: Possible post ERCP pancreatitis, however after discussing w/ GI - do not feel that pt has pancreatitis - no serologic or imaging evidence hx chronic pancreatitis/history choledochal cyst status post surgery Patient nontoxic. Transient hypoxemia noted at the ER -> pt is currently on RA Possibly from COPD. patient denies unusual SOB Received IVF and diet was started - tolerating clear liquids and crackers GI consulted - recommend 7 days of cipro/ flagyl and ok to discharge Pt feels improved and would like to be discharged. Acute on chronic anemia, Hemoglobin lower than baseline, patient denies overt GI bleed anemia work-up, patient hesitant to receive transfusion if recommended No bleeding noted on CT, fobt ordered Follow up as outpt Right breast cancer status post surgery/radiation/tamoxifen Rx, currently in remission hypothyroidism, euthyroid as of recent outpatient TSH mood disorder, at baseline past tobacco abuse Total Time Total Time Spent Total Time Spent (In Minutes): 40 Discharge Plan Discharge Items Patient Disposition: Home - Self-Care Reason For Visit: ABD PAIN Discharge Diagnosis: Abdominal pain after ERCP Condition on Discharge: Good Activity: Per Instructions section Non-emergency contact: Primary Care Provider and Application Development Specialist Call non-emergency contact if: you have any medication questions and your symptoms worsen Follow-up/Referrals: Amanda Curry MD [Primary Care Provider] - (Date & Time 03/27/2023 10:40 AM Provider Saagr Werner PA-C Department General Internal Medicine [facility] ) Diet: Other - See Diet Comment Diet Comment: advance diet as tolerated, avoid heavy, fatty foods for now Addtl Attending Provider Instructions: Follow-up with your primary care provider, and gastroenterology. The appointment with your primary care doctor was scheduled for you for March 27. Finish antibiotic treatment with ciprofloxacin and flagyl as prescribed. Pending Studies at Discharge: Yes Studies:: final blood cultx Stand-Alone Forms: My [facility] (f. [employer]), Smoking Cessation Medications and DC Order Prescriptions: New ciprofloxacin HCl 500 mg Tablet 500 mg PO BID 6 Days Qty: 12 0RF metronidazole 500 mg tablet 500 mg PO TID 7 Days Qty: 21 0RF Continued cetirizine 10 mg Tablet 10 mg PO DAILY milk thistle 200 mg Capsule 200 mg PO DAILY PRN (Reason: ..) Rx Instructions: give with meal/snack garlic 1,000 mg Capsule 1,000 mg PO DAILY levothyroxine 88 mcg tablet 88 mcg PO DAILY omeprazole 20 mg capsule,delayed release(DR/EC) 20 mg PO QAM ipratropium bromide 42 mcg (0.06 %) [place],Non-Aerosol 1 spray INTRANASAL BID Rx Instructions: administer into each nostril B-complex with vitamin C [Super B Complex + C] Tablet 1 tab PO DAILY Probiotic Acidophilus 1.5 mg (250 million cell) Capsule 0 mmu cells PO DAILY turmeric root extract 500 mg Tablet 500 mg PO QAM Vitamin D2 Tab 2,000 unit PO DAILY levalbuterol tartrate [Xopenex HFA] 45 mcg/actuation HFA aerosol inhaler 2 puff INHALATION Q6 PRN (Reason: Shortness Of Breath Or Wheezing) Discontinued ciprofloxacin HCl [Cipro] 500 mg Tablet 500 mg PO BID Rx Instructions: ordered 03/20/23 Discharge Orders: Discharge Order (Routine); Ordered 03/21/23 Ordered By: Luisito Goff Admission Data Admit Date/Time: 03/20/23 23:32 Attending Provider: Luisito Goff Admit Provider: Vinnie Salazar Primary Care Provider: Amanda Curry Other Providers: Mari Blue ; Stu Ashford ; Ana Guillen ; Pari Shaffer ; Sheyla Garcia ; Elizabeth Thomas ; Raymundo John ; Foster Ziegler ; Eduardo Pettit ; Jaquelin Madsen ; Marquis Robles ; Regla Oconnor ; Sudha Amado ; Leticia Fuentes ; Lety Torrez ; Reuben Vela ; Luis Warner ; Gavin Farrar ; Tamika Fung ; Ludwig Selby Jr ; Vinnie Salazar
--- NOTE | 2023-03-22 06:36 | Electrocardiogram Report ---
Test Reason : Blood Pressure : / mmHG Vent. Rate : 087 BPM Atrial Rate : 087 BPM P-R Int : 184 ms QRS Dur : 072 ms QT Int : 318 ms P-R-T Axes : 007 049 046 degrees QTc Int : 382 ms Normal sinus rhythm Low voltage QRS Anteroseptal infarct , age undetermined Abnormal ECG No previous ECGs available Confirmed by Irving Blair ([id number]) on 03/22/2023 6:35:59 AM Referred By: REFERRED SELF Confirmed By:Irving Blair
== END 2023-03-21 13:40 | disposition home or self-care (01) ==
LOC: ED 18:15 → 3W 18:15